=== PATIENT | male | born 1945 | race Asian ===

== ENCOUNTER 2017-01-26 09:10 | Emergency (ER) | payer MEDICAID ==
[~2017-01-26] VITALS: Ht 170.2 cm; Wt 77.3 kg
[~2017-01-26 09:10] MED LIST: ATOR40TA28 PO; CLOP75 PO; GABA-531 PO; INSLAN SQ; LISI-660 PO; METF850T2 PO; METO25 PO; PANT40TA25 PO
[2017-01-26 09:27] LABS: GLUCOSE,POINT OF CARE 138 MG/DL (70-110)
[2017-01-26 10:12] LABS: BASOPHILS % (AUTO) 0.4 % (0.0-2.0); EOSINOPHILS % (AUTO) 1.7 % (1.0-6.0); HEMATOCRIT 42.1 % (41-53); HEMOGLOBIN 13.8 g/dL (13.5-17.5); LYMPHOCYTES # (AUTO) 1.8 K/uL (1.0-4.8); MEAN CORPUSCULAR HEMOGLOBIN 30.6 pg (26.0-34.0); MEAN CORPUSCULAR HGB CONC 32.8 G/dL (31.0-37.0); MEAN CORPUSCULAR VOLUME 93 fL (80-100); MONOCYTES # (AUTO) 0.7 K/uL (0.1-1.0); MONOCYTES % (AUTO) 8.1 % (2.0-9.0); NEUTROPHILS # (AUTO) 5.6 K/uL (1.8-7.7); NEUTROPHILS % (AUTO) 67.8 % (40.0-70.0); PLATELET COUNT (AUTO) 315 K/uL (150-450); RED BLOOD CELL COUNT(AUTO) 4.52 MIL/uL (4.50-5.90); RED CELL DISTRIBUTION WIDTH 13.3 % (11.5-14.5); WHITE BLOOD COUNT (AUTO) 8.3 K/uL (4.5-11.0)
[2017-01-26 10:15] LABS: CALCIUM, TOTAL 9.7 mg/dL (8.8-10.5); CREATININE 1.29 mg/dL (0.60-1.30); POTASSIUM 4.2 mmol/L (3.5-5.1)
[2017-01-26 10:23] LABS: ALBUMIN 4.1 g/dL (3.4-5.0); BILIRUBIN,TOTAL 1.5 mg/dL (0.1-1.0); TOTAL PROTEIN, SERUM 8.4 g/dL (6.4-8.2)
[2017-01-26] MEDS: ONDANSETRON HCL 4 MG/2 ML VIAL IVP ONE (12:03)
[2017-01-26] MEDS: FAMOTIDINE 10 MG/ML 2 ML VIAL IVP ONE (12:03)
[2017-01-26] MEDS: SODIUM CHLORIDE 0.9% 1,000 ML IV ONE (12:03)
[2017-01-26] MEDS: HYDROmorphone 2 MG/ML SYRINGE IVP ONE ×2 (12:04→14:33)
[2017-01-26 15:05] VITALS: BP 143/87
== END 2017-01-26 15:33 | disposition home or self-care (01) ==
LOC: EMS 09:11
DX: K80.20 Calculus of gallbladder without cholecystitis without obstruction (principal); E11.9 Type 2 diabetes mellitus without complications; I25.10 Atherosclerotic heart disease of native coronary artery without angina pectoris; K21.9 Gastro-esophageal reflux disease without esophagitis; I10 Essential (primary) hypertension; Z88.6 Allergy status to analgesic agent; Z79.4 Long term (current) use of insulin
CPT/HCPCS: 76700; 80053; 82962; 83690; 85025; 96361; 96374; 96375; 96376; 99285; J1170; J2405; J3490; J7030

== ENCOUNTER 2017-03-17 04:57 | Emergency (ER) | payer MEDICAID ==
[~2017-03-17] VITALS: Ht 170.2 cm; Wt 77.0 kg
[2017-03-17 05:17] LABS: GLUCOSE COMMENT 1 Doctor Notified; GLUCOSE,POINT OF CARE 316 MG/DL (70-110)
[2017-03-17 05:35] LABS: BASOPHILS # (AUTO) 0.02 K/uL (0.00-0.20); BASOPHILS % (AUTO) 0.2 % (0.0-2.0); EOSINOPHILS # (AUTO) 0.08 K/uL (0.00-0.70); HEMATOCRIT 40.4 % (41-53); HEMOGLOBIN 13.8 g/dL (13.5-17.5); LYMPHOCYTES # (AUTO) 1.2 K/uL (1.0-4.8); LYMPHOCYTES % (AUTO) 12.1 % (22.0-44.0); MEAN CORPUSCULAR HEMOGLOBIN 31.2 pg (26.0-34.0); MEAN CORPUSCULAR HGB CONC 34.1 G/dL (31.0-37.0); MEAN CORPUSCULAR VOLUME 92 fL (80-100); MONOCYTES # (AUTO) 0.4 K/uL (0.1-1.0); MONOCYTES % (AUTO) 4.2 % (2.0-9.0); NEUTROPHILS # (AUTO) 8.5 K/uL (1.8-7.7); NEUTROPHILS % (AUTO) 82.7 % (40.0-70.0); PLATELET COUNT (AUTO) 203 K/uL (150-450); RED BLOOD CELL COUNT(AUTO) 4.41 MIL/uL (4.50-5.90); RED CELL DISTRIBUTION WIDTH 14.3 % (11.5-14.5); WHITE BLOOD COUNT (AUTO) 10.3 K/uL (4.5-11.0)
[2017-03-17 05:48] LABS: CALCIUM, TOTAL 9.1 mg/dL (8.8-10.5); CREATININE 1.27 mg/dL (0.60-1.30); POTASSIUM 4.4 mmol/L (3.5-5.1)
[2017-03-17 05:55] LABS: ALBUMIN 4.1 g/dL (3.4-5.0); BILIRUBIN,TOTAL 1.8 mg/dL (0.1-1.0); TOTAL PROTEIN, SERUM 7.8 g/dL (6.4-8.2)
[2017-03-17] MEDS ORDERED: ACETAMINOPHEN 1000 MG/ISO-OSM 100 ML IV ONE (06:15)
[2017-03-17 06:18] VITALS: BP 176/73
== END 2017-03-17 06:53 | disposition home or self-care (01) ==
LOC: EMS 04:59
DX: K80.20 Calculus of gallbladder without cholecystitis without obstruction (principal); E11.65 Type 2 diabetes mellitus with hyperglycemia; K21.9 Gastro-esophageal reflux disease without esophagitis; I25.10 Atherosclerotic heart disease of native coronary artery without angina pectoris; I10 Essential (primary) hypertension; Z79.4 Long term (current) use of insulin; Z88.6 Allergy status to analgesic agent
CPT/HCPCS: 36415; 80053; 82962; 83690; 84484; 85025; 93005; 96365; 99285; J0131

== ENCOUNTER 2017-06-08 20:18 | Emergency (ER) | payer MEDICAID ==
[~2017-06-08] VITALS: Ht 170.2 cm; Wt 81.0 kg
[2017-06-08 20:37] LABS: GLUCOSE,POINT OF CARE 283 MG/DL (70-110)
[2017-06-08 21:15] LABS: BASOPHILS % (AUTO) 0.1 % (0.0-2.0); EOSINOPHILS # (AUTO) 0.01 K/uL (0.00-0.70); EOSINOPHILS % (AUTO) 0.11 % (1.0-6.0); HEMATOCRIT 36.1 % (41-53); HEMOGLOBIN 12.3 g/dL (13.5-17.5); LYMPHOCYTES # (AUTO) 0.3 K/uL (1.0-4.8); LYMPHOCYTES % (AUTO) 6.4 % (22.0-44.0); MEAN CORPUSCULAR HEMOGLOBIN 31.6 pg (26.0-34.0); MEAN CORPUSCULAR HGB CONC 34.2 G/dL (31.0-37.0); MEAN CORPUSCULAR VOLUME 92 fL (80-100); MONOCYTES % (AUTO) 0.9 % (2.0-9.0); NEUTROPHILS # (AUTO) 4.2 K/uL (1.8-7.7); PLATELET COUNT (AUTO) 146 K/uL (150-450); RED BLOOD CELL COUNT(AUTO) 3.91 MIL/uL (4.50-5.90); WHITE BLOOD COUNT (AUTO) 4.5 K/uL (4.5-11.0)
[2017-06-08] MEDS ORDERED: SODIUM CHLORIDE 0.9% 1,000 ML IV ONE ×3 (21:15→23:15)
[2017-06-08] MEDS ORDERED: ACETAMINOPHEN 325 MG TABLET PO ONE (21:15)
[2017-06-08 21:18] LABS: NEUTROPHILS % (AUTO) 92.6 % (40.0-70.0)
[2017-06-08 21:22] LABS: ANION GAP 14 mmol/L (8-16); CALCIUM, TOTAL 8.3 mg/dL (8.8-10.5); CARBON DIOXIDE 20 mmol/L (22-29); CHLORIDE 99 mmol/L (98-107); CREATININE 1.57 mg/dL (0.60-1.30); GLOMERULAR FILTR. RATE CALC 44 mL/min (>60); POTASSIUM 3.2 mmol/L (3.5-5.1); SODIUM SERUM 133 mmol/L (136-145); UREA NITROGEN, BLOOD 19 mg/dL (7-18)
[2017-06-08 21:27] LABS: INR 1.3 (0.9-1.1); PROTHROMBIN TIME 13.9 SEC (9.4-11.6)
[2017-06-08 21:28] LABS: ALANINE AMINOTRANSFERASE 440 U/L (12-78); ALBUMIN 3.1 g/dL (3.4-5.0); ASPARTATE AMINOTRANSFERASE 245 U/L (15-37); BILIRUBIN,TOTAL 6.8 mg/dL (0.1-1.0); TOTAL PROTEIN, SERUM 6.3 g/dL (6.4-8.2)
[2017-06-08 21:29] LABS: TROPONIN I 0.08 ng/mL (0.00-0.05)
[2017-06-08 21:37] LABS: LACTIC ACID 5.2 mmol/L (0.4-2.0)
[2017-06-08] MEDS ORDERED: PIPERACILLIN SODIUM/TAZOBACTAM 4.5 GM in DEXTROSE 5%-WATER 100 ML IV ONE (21:45)
[2017-06-08 22:24] LABS: B-TYPE NATRIURETIC PEPTIDE 47 pg/mL (0-100)
[2017-06-08 23:04] LABS: REFLEX LACTIC ACID? YES YES
[2017-06-08 23:11] LABS: ADD UA MICROSCOPIC YES; APPEARANCE,URINE CLOUDY (CLEAR); GLUCOSE, URINE (UA) >=1000 mg/dL (NEGATIVE); KETONES,URINE NEGATIVE (NEGATIVE); LEUKOCYTE ESTERASE ,URINE NEGATIVE (NEGATIVE); OCCULT BLOOD,URINE SMALL (NEGATIVE); PH,URINE 5.5 (5.0-8.0); PROTEIN,URINE POS 1+ (NEGATIVE)
[2017-06-08 23:15] VITALS: BP 112/45
[2017-06-08 23:15] LABS: SQUAMOUS EPITHELIAL CELL,UR Few /LPF (None Seen); WBC,URINE 0-2 /HPF (0-5)
[2017-06-08] MEDS ORDERED: PIPERACILLIN/TAZO 3.375 GM/D5W 50 ML IV ONE (23:15)
== END 2017-06-09 00:35 | disposition short-term general hospital (02) ==
LOC: EMS 20:20
DX: K80.20 Calculus of gallbladder without cholecystitis without obstruction (principal); E11.9 Type 2 diabetes mellitus without complications; I25.10 Atherosclerotic heart disease of native coronary artery without angina pectoris; K21.9 Gastro-esophageal reflux disease without esophagitis; I10 Essential (primary) hypertension; Z79.4 Long term (current) use of insulin; Z88.6 Allergy status to analgesic agent
CPT/HCPCS: 36415; 71010; 76700; 80053; 81001; 82140; 82962; 83605; 83690; 83880; 84484; 85025; 85610; 85730; 87040; 87077; 87186; 93005; 96361; 96365; 96366; 99285; J2543; J7030; J7060

== ENCOUNTER 2017-08-12 12:00 | Day surgery (SDC) | payer MEDICAID ==
[~2017-08-12] VITALS: Ht 167.6 cm; Wt 74.5 kg
[~2017-08-12 12:00] MED LIST changes: +SODIUM CHLORIDE 0.9% 1,000 ML IV ONE
[2017-08-12] MEDS ORDERED: MIDAZOLAM HCL 2 MG/2 ML VIAL IVP ONE (12:01)
[2017-08-12] MEDS ORDERED: FentaNYL CITRATE-PF 100 MCG/2 ML VIAL IVP ONE (12:01)
[2017-08-12] MEDS ORDERED: LIDOCAINE HCL/PF 2% 5 ML VIAL IM ONE (12:01)
[2017-08-12] MEDS ORDERED: SUCCINYLCHOLINE CHLORIDE 20 MG/ML 10 ML VIAL IVP ONE (12:01)
[2017-08-12] MEDS ORDERED: PROPOFOL 1% 20 ML VIAL IVP ONE (12:01)
[2017-08-12] MEDS ORDERED: ONDANSETRON HCL 4 MG/2 ML VIAL IVP ONE (12:01)
[2017-08-12 12:45] LABS: BASOPHILS # (AUTO) 0.03 K/uL (0.00-0.20); BASOPHILS % (AUTO) 0.4 % (0.0-2.0); EOSINOPHILS # (AUTO) 0.21 K/uL (0.00-0.70); EOSINOPHILS % (AUTO) 2.96 % (1.0-6.0); HEMATOCRIT 40.9 % (41-53); HEMOGLOBIN 14.1 g/dL (13.5-17.5); LYMPHOCYTES % (AUTO) 27.6 % (22.0-44.0); MEAN CORPUSCULAR HEMOGLOBIN 31.5 pg (26.0-34.0); MEAN CORPUSCULAR HGB CONC 34.4 G/dL (31.0-37.0); MEAN CORPUSCULAR VOLUME 92 fL (80-100); MONOCYTES # (AUTO) 0.7 K/uL (0.1-1.0); MONOCYTES % (AUTO) 10.2 % (2.0-9.0); NEUTROPHILS # (AUTO) 4.2 K/uL (1.8-7.7); NEUTROPHILS % (AUTO) 58.8 % (40.0-70.0); PLATELET COUNT (AUTO) 199 K/uL (150-450); RED BLOOD CELL COUNT(AUTO) 4.46 MIL/uL (4.50-5.90); RED CELL DISTRIBUTION WIDTH 14.6 % (11.5-14.5); WHITE BLOOD COUNT (AUTO) 7.1 K/uL (4.5-11.0)
[2017-08-12 12:54] LABS: ANION GAP 8 mmol/L (8-16); CALCIUM, TOTAL 9.2 mg/dL (8.8-10.5); CARBON DIOXIDE 28 mmol/L (22-29); CHLORIDE 102 mmol/L (98-107); GLOMERULAR FILTR. RATE CALC > 60 mL/min (>60); POTASSIUM 4.3 mmol/L (3.5-5.1); SODIUM SERUM 138 mmol/L (136-145); UREA NITROGEN, BLOOD 13 mg/dL (7-18)
[2017-08-12 12:57] LABS: PROTHROMBIN TIME 10.2 SEC (9.4-11.6)
[2017-08-12] MEDS ORDERED: IOTHALAMATE MEGLUMINE 600 MG/ML 50 ML VIAL IVP ONE (14:16)
[2017-08-12] MEDS ORDERED: AMPICILLIN SODIUM/SULBACTAM NA 1.5 GM in SODIUM CHLORIDE 0.9% 50 ML IV STA (14:38)
[2017-08-12] MEDS ORDERED: HydrALAZINE HCL 20 MG/ML VIAL IVP ONE (15:15)
[2017-08-12] MEDS ORDERED: HydrALAZINE HCL 20 MG/ML VIAL IVP PRN (15:30)
== END 2017-08-12 16:45 | disposition home or self-care (01) ==
LOC: SURGERY 12:00
PROVIDERS: ATTEND Internal Medicine Gastroenterology
DX: K80.51 Calculus of bile duct without cholangitis or cholecystitis with obstruction (principal); K83.8 Other specified diseases of biliary tract; E11.42 Type 2 diabetes mellitus with diabetic polyneuropathy; I25.10 Atherosclerotic heart disease of native coronary artery without angina pectoris; G89.29 Other chronic pain; Z79.01 Long term (current) use of anticoagulants; Z86.79 Personal history of other diseases of the circulatory system; Z88.8 Allergy status to other drugs, medicaments and biological substances; Z95.5 Presence of coronary angioplasty implant and graft
CPT/HCPCS: 36415; 43264; 43275; 74328; 80048; 85025; 85610; 85730; 88300; 93005; C1769; J0295; J0330; J2250; J2405; J2704; J3010; J3490; J7030; J7050; Q9961

== ENCOUNTER 2017-08-25 02:40 | Inpatient (IN) | payer MEDICAID ==
[~2017-08-25] VITALS: Ht 170.2 cm; Wt 78.5 kg
[~2017-08-25 02:40] MED LIST changes: -SODIUM CHLORIDE 0.9% 1,000 ML IV ONE
[2017-08-25 03:13] LABS: BASOPHILS # (AUTO) 0.01 K/uL (0.00-0.20); BASOPHILS % (AUTO) 0.1 % (0.0-2.0); EOSINOPHILS # (AUTO) 0.08 K/uL (0.00-0.70); EOSINOPHILS % (AUTO) 1.53 % (1.0-6.0); HEMOGLOBIN 13.7 g/dL (13.5-17.5); LYMPHOCYTES % (AUTO) 18.9 % (22.0-44.0); MEAN CORPUSCULAR HEMOGLOBIN 31.4 pg (26.0-34.0); MEAN CORPUSCULAR VOLUME 90 fL (80-100); MONOCYTES % (AUTO) 0.6 % (2.0-9.0); NEUTROPHILS # (AUTO) 4.1 K/uL (1.8-7.7); NEUTROPHILS % (AUTO) 78.9 % (40.0-70.0); PLATELET COUNT (AUTO) 360 K/uL (150-450); RED BLOOD CELL COUNT(AUTO) 4.35 MIL/uL (4.50-5.90); RED CELL DISTRIBUTION WIDTH 14.1 % (11.5-14.5); WHITE BLOOD COUNT (AUTO) 5.3 K/uL (4.5-11.0)
[2017-08-25 03:24] LABS: ANION GAP 12 mmol/L (8-16); CALCIUM, TOTAL 9.1 mg/dL (8.8-10.5); CARBON DIOXIDE 24 mmol/L (22-29); CHLORIDE 99 mmol/L (98-107); CREATININE 1.28 mg/dL (0.60-1.30); GLOMERULAR FILTR. RATE CALC 56 mL/min (>60); POTASSIUM 3.9 mmol/L (3.5-5.1); SODIUM SERUM 135 mmol/L (136-145); UREA NITROGEN, BLOOD 8 mg/dL (7-18)
[2017-08-25] MEDS ORDERED: ONDANSETRON HCL 4 MG/2 ML VIAL IVP ONE (03:30)
[2017-08-25] MEDS ORDERED: SODIUM CHLORIDE 0.9% 1,000 ML IV ONE ×2 (03:30→03:45)
[2017-08-25] MEDS ORDERED: MECLIZINE HCL 25 MG TABLET PO ONE (03:30)
[2017-08-25] MEDS ORDERED: IBUPROFEN 600 MG TABLET PO ONE (03:30)
[2017-08-25 03:32] LABS: GLUCOSE,POINT OF CARE 117 MG/DL (70-110)
[2017-08-25 03:38] LABS: ALANINE AMINOTRANSFERASE 37 U/L (12-78); ALBUMIN 3.6 g/dL (3.4-5.0); ASPARTATE AMINOTRANSFERASE 20 U/L (15-37); BILIRUBIN,TOTAL 1.2 mg/dL (0.1-1.0); TOTAL PROTEIN, SERUM 8.7 g/dL (6.4-8.2)
[2017-08-25 04:27] LABS: APPEARANCE,URINE CLEAR (CLEAR); GLUCOSE, URINE (UA) NEGATIVE (NEGATIVE); KETONES,URINE NEGATIVE (NEGATIVE); LEUKOCYTE ESTERASE ,URINE NEGATIVE (NEGATIVE); OCCULT BLOOD,URINE NEGATIVE (NEGATIVE); PROTEIN,URINE POS 1+ (NEGATIVE)
[2017-08-25 04:30] LABS: ADD UA MICROSCOPIC YES
[2017-08-25 04:39] LABS: RBC,URINE 0-2 /HPF (0-2); SQUAMOUS EPITHELIAL CELL,UR Few /LPF (None Seen); WBC,URINE 0-2 /HPF (0-5)
[2017-08-25] MEDS ORDERED: IOVERSOL 320 MG/ML 100 ML VIAL ONE (04:39)
[2017-08-25] MEDS ORDERED: SODIUM CHLORIDE 0.9% 100 ML ONE (04:39)
[2017-08-25] MEDS ORDERED: ACETAMINOPHEN 325 MG TABLET PO PRN (04:45)
[2017-08-25] MEDS ORDERED: ONDANSETRON HCL 4 MG/2 ML VIAL IVP PRN ×2 (04:45→06:30)
[2017-08-25] MEDS ORDERED: *CLINICAL-CEFEPIME DOSING CLINICAL ONE ×2 (04:45)
[2017-08-25] MEDS ORDERED: 0.9% SODIUM CHLORIDE 10 ML SYRINGE IVP PRN (04:45)
[2017-08-25 05:08] LABS: REFLEX LACTIC ACID? YES YES
[2017-08-25] MEDS ORDERED: VANCOMYCIN HCL 1.25 GM in DEXTROSE 5%-WATER 250 ML IV ONE (05:30)
[2017-08-25] MEDS ORDERED: CEFEPIME HCL 1 GM in DEXTROSE 5%-WATER 50 ML IV ONE (05:30)
[2017-08-25] MEDS ORDERED: MetroNIDAZOLE 500 MG/NACL 100 ML IV ONE (05:45)
[2017-08-25 05:52] VITALS: BP 148/67
[2017-08-25] MEDS ORDERED: ALBUTEROL SULFATE 2.5 MG/0.5 ML NEB SOLUTION NEB PRN (06:30)
[2017-08-25] MEDS ORDERED: ZOLPIDEM TARTRATE 5 MG TABLET PO PRN (06:30)
[2017-08-25] MEDS ORDERED: BISACODYL 10 MG RECTAL RECTAL SUPPOSITORY PR PRN (06:30)
[2017-08-25] MEDS ORDERED: DEXTROSE 50%-WATER 25 GM/50 ML SYRINGE IVP PRN (06:30)
[2017-08-25] MEDS ORDERED: IPRATROPIUM BROMIDE 0.5 MG/2.5 ML NEB SOLUTION NEB PRN (06:30)
[2017-08-25] MEDS ORDERED: MORPHINE SULFATE 2 MG/ML SYRINGE IVP PRN (06:30)
[2017-08-25] MEDS ORDERED: OxyCODONE HCL/ACETAMINOPHEN 5-325 MG TABLET PO PRN (06:30)
[2017-08-25] MEDS ORDERED: MAGNESIUM HYDROXIDE SUSPENSION 30 ML UDCUP PO PRN (06:30)
[2017-08-25 06:43] LABS: GLUCOSE,POINT OF CARE 72 MG/DL (70-110)
[2017-08-25] MEDS ORDERED: CloNIDine HCL 0.1 MG TABLET PO PRN (06:45)
[2017-08-25 07:44] VITALS: BP 142/66
[2017-08-25] MEDS: MetFORMIN HCL 850 MG TABLET PO SCH ×3 (08:32→18:15)
[2017-08-25] MEDS: METOPROLOL TARTRATE 25 MG TABLET PO SCH (08:32)
[2017-08-25] MEDS: HEPARIN SODIUM,PORCINE 5,000 UNITS/ML VIAL SQ SCH ×2 (08:32→20:15)
[2017-08-25] MEDS: LISINOPRIL 5 MG TABLET PO SCH (08:32)
[2017-08-25] MEDS: ATORVASTATIN CALCIUM 40 MG TABLET PO SCH (08:32)
[2017-08-25] MEDS: GABAPENTIN 300 MG CAPSULE PO SCH (08:32)
[2017-08-25] MEDS: PANTOPRAZOLE SODIUM 40 MG DR TABLET PO SCH (08:32)
[2017-08-25] MEDS: CLOPIDOGREL BISULFATE 75 MG TABLET PO SCH (08:32)
[2017-08-25] MEDS: SODIUM CHLORIDE 0.9% 1,000 ML IV SCH (09:34)
[2017-08-25 11:44] VITALS: BP 122/61
[2017-08-25] MEDS: MetroNIDAZOLE 500 MG/NACL 100 ML IV SCH ×2 (12:55→18:15)
[2017-08-25 15:16] VITALS: BP 130/66
[2017-08-25 17:58] LABS: GLUCOSE,POINT OF CARE 133 MG/DL (70-110)
[2017-08-25] MEDS: ACETAMINOPHEN 325 MG TABLET PO PRN (18:47)
[2017-08-25] MEDS ORDERED: VANCOMYCIN HCL 1 GM/D5% WATER 200 ML IV SCH (19:00)
[2017-08-25] MEDS ORDERED: PNEUMOCOCCAL VACCINE POLYVALENT 0.5 ML VIAL [PPSV23] IM ONE (19:15)
[2017-08-25] MEDS ORDERED: INFLUENZA VIRUS VACCINE QVS 2017-18 (3YR+)/PF 60 MCG/0.5 ML SYRINGE IM ONE (19:15)
[2017-08-25 19:38] VITALS: BP 126/56
[2017-08-25] MEDS: VANCOMYCIN HCL 750 MG in DEXTROSE 5%-WATER 150 ML IV SCH (20:15)
[2017-08-25] MEDS: INSULIN ASPART 100 UNITS/ML SQ PRN (20:19)
[2017-08-25] MEDS: INSULIN DETEMIR 100 UNITS/ML SQ SCH (20:19)
[2017-08-25 20:33] LABS: GLUCOSE,POINT OF CARE 143 MG/DL (70-110)
[2017-08-25] MEDS: CefTRIAXone 1 GM/DEXTROSE 50 ML IV SCH (22:24)
[2017-08-25 23:25] VITALS: BP 119/53
[2017-08-26] MEDS: SODIUM CHLORIDE 0.9% 1,000 ML IV SCH ×3 (00:32→20:40)
[2017-08-26] MEDS: MetroNIDAZOLE 500 MG/NACL 100 ML IV SCH ×3 (02:34→18:31)
[2017-08-26 04:29] VITALS: BP 131/55
[2017-08-26 05:32] LABS: GLUCOSE COMMENT 1 Juice/Food/D50 Given; GLUCOSE,POINT OF CARE 61 MG/DL (70-110)
[2017-08-26 05:58] LABS: GLUCOSE,POINT OF CARE 79 MG/DL (70-110)
[2017-08-26 06:26] LABS: HEMATOCRIT 32.5 % (41-53); HEMOGLOBIN 11.2 g/dL (13.5-17.5); MEAN CORPUSCULAR HEMOGLOBIN 31.3 pg (26.0-34.0); MEAN CORPUSCULAR HGB CONC 34.5 G/dL (31.0-37.0); MEAN CORPUSCULAR VOLUME 91 fL (80-100); PLATELET COUNT (AUTO) 255 K/uL (150-450); RED BLOOD CELL COUNT(AUTO) 3.58 MIL/uL (4.50-5.90)
[2017-08-26 06:28] LABS: GLUCOSE,POINT OF CARE 158 MG/DL (70-110)
[2017-08-26 06:31] LABS: INR 1.1 (0.9-1.1); PROTHROMBIN TIME 11.6 SEC (9.4-11.6)
[2017-08-26 06:38] LABS: LACTIC ACID 1.9 mmol/L (0.4-2.0)
[2017-08-26 06:43] LABS: ALBUMIN 2.5 g/dL (3.4-5.0); CALCIUM, TOTAL 8.2 mg/dL (8.8-10.5); CHOL/HDL RATIO 2.5 (4.2-7.3); CREATININE 1.23 mg/dL (0.60-1.30); MAGNESIUM 1.1 mg/dL (1.80-2.40); PHOSPHORUS 1.8 mg/dL (2.5-4.9); POTASSIUM 3.4 mmol/L (3.5-5.1); TOTAL PROTEIN, SERUM 6.5 g/dL (6.4-8.2)
[2017-08-26 07:05] LABS: THYROID STIMULATING HORMONE 2.03 uIU/mL (0.36-3.74)
[2017-08-26 07:17] VITALS: BP 132/50
[2017-08-26] MEDS: CLOPIDOGREL BISULFATE 75 MG TABLET PO SCH (08:09)
[2017-08-26] MEDS: ATORVASTATIN CALCIUM 40 MG TABLET PO SCH (08:09)
[2017-08-26] MEDS: VANCOMYCIN HCL 750 MG in DEXTROSE 5%-WATER 150 ML IV SCH ×2 (08:09→20:30)
[2017-08-26] MEDS: LISINOPRIL 5 MG TABLET PO SCH (08:09)
[2017-08-26] MEDS: METOPROLOL TARTRATE 25 MG TABLET PO SCH (08:09)
[2017-08-26] MEDS: GABAPENTIN 300 MG CAPSULE PO SCH (08:09)
[2017-08-26] MEDS: MetFORMIN HCL 850 MG TABLET PO SCH ×3 (08:09→17:42)
[2017-08-26] MEDS: PANTOPRAZOLE SODIUM 40 MG DR TABLET PO SCH (08:09)
[2017-08-26] MEDS: HEPARIN SODIUM,PORCINE 5,000 UNITS/ML VIAL SQ SCH ×2 (08:09→20:52)
[2017-08-26] MEDS ORDERED: MAGNESIUM SULFATE 2 GM in DEXTROSE 5%-WATER 50 ML IV PRN (08:15)
[2017-08-26] MEDS ORDERED: POTASSIUM CHLORIDE 20 MEQ ER TABLET PO PRN (08:15)
[2017-08-26] MEDS ORDERED: POTASSIUM CHL 10 MEQ/WATER 50 ML IV PRN (08:15)
[2017-08-26] MEDS ORDERED: MAGNESIUM SULFATE 4 GM/WATER 100 ML IV PRN (08:15)
[2017-08-26 09:13] LABS: BAND NEUTROPHILS % (MANUAL) 10 % (1-5); BASOPHILS % (MANUAL) 1 % (0-2); LYMPHOCYTES % (MANUAL) 4 % (22-44); TOTAL CELLS COUNTED 100
[2017-08-26] MEDS: CHOLECALCIFEROL (VIT D3) 1,000 UNITS TABLET PO SCH (10:29)
[2017-08-26] MEDS ORDERED: FentaNYL CITRATE-PF 100 MCG/2 ML VIAL ONE (10:52)
[2017-08-26] MEDS ORDERED: MIDAZOLAM HCL 2 MG/2 ML VIAL ONE (10:53)
[2017-08-26] MEDS ORDERED: LIDOCAINE HCL/PF 1% 30 ML VIAL ONE (10:53)
[2017-08-26] MEDS ORDERED: FentaNYL CITRATE-PF 100 MCG/2 ML VIAL IVP ONE (11:25)
[2017-08-26] MEDS ORDERED: MIDAZOLAM HCL 2 MG/2 ML VIAL IVP ONE (11:25)
[2017-08-26 12:41] VITALS: BP 131/69
[2017-08-26 12:53] LABS: GLUCOSE,POINT OF CARE 91 MG/DL (70-110)
[2017-08-26 15:49] VITALS: BP 139/74
[2017-08-26] MEDS: ACETAMINOPHEN 325 MG TABLET PO PRN (16:11)
[2017-08-26] MEDS: INSULIN ASPART 100 UNITS/ML SQ PRN (17:53)
[2017-08-26 18:03] LABS: GLUCOSE COMMENT 1 Received Meds; GLUCOSE,POINT OF CARE 152 MG/DL (70-110)
[2017-08-26 20:39] VITALS: BP 129/85
[2017-08-26] MEDS: CefTRIAXone 1 GM/DEXTROSE 50 ML IV SCH (20:51)
[2017-08-26] MEDS: INSULIN DETEMIR 100 UNITS/ML SQ SCH (20:56)
[2017-08-26] MEDS: 0.9% SODIUM CHLORIDE 10 ML VIAL IRRIG SCH (20:57)
[2017-08-26 21:27] LABS: APPEARANCE,URINE CLEAR (CLEAR); GLUCOSE, URINE (UA) NEGATIVE (NEGATIVE); KETONES,URINE NEGATIVE (NEGATIVE); LEUKOCYTE ESTERASE ,URINE NEGATIVE (NEGATIVE); OCCULT BLOOD,URINE NEGATIVE (NEGATIVE); PH,URINE 5.5 (5.0-8.0); PROTEIN,URINE NEGATIVE (NEGATIVE)
[2017-08-26 21:29] LABS: ADD UA MICROSCOPIC NO
[2017-08-26] MEDS: LEVOFLOXACIN 750 MG/D5% WATER 150 ML IV SCH (22:32)
[2017-08-26 22:43] LABS: GLUCOSE,POINT OF CARE 128 MG/DL (70-110)
[2017-08-27] VITALS (7 sets, daily range): BP systolic 139–162; BP diastolic 74–81
[2017-08-27] MEDS: ACETAMINOPHEN 325 MG TABLET PO PRN (00:04)
[2017-08-27] MEDS: MetroNIDAZOLE 500 MG/NACL 100 ML IV SCH ×2 (03:10→11:47)
[2017-08-27 05:23] LABS: GLUCOSE,POINT OF CARE 120 MG/DL (70-110)
[2017-08-27 07:26] LABS: BASOPHILS % (AUTO) 0.2 % (0.0-2.0); HEMATOCRIT 33.5 % (41-53); HEMOGLOBIN 11.5 g/dL (13.5-17.5); LYMPHOCYTES # (AUTO) 1.3 K/uL (1.0-4.8); LYMPHOCYTES % (AUTO) 8.7 % (22.0-44.0); MEAN CORPUSCULAR HEMOGLOBIN 31.1 pg (26.0-34.0); MEAN CORPUSCULAR HGB CONC 34.2 G/dL (31.0-37.0); MEAN CORPUSCULAR VOLUME 91 fL (80-100); MONOCYTES # (AUTO) 0.9 K/uL (0.1-1.0); NEUTROPHILS # (AUTO) 12.4 K/uL (1.8-7.7); NEUTROPHILS % (AUTO) 84.1 % (40.0-70.0); PLATELET COUNT (AUTO) 274 K/uL (150-450); RED BLOOD CELL COUNT(AUTO) 3.68 MIL/uL (4.50-5.90); RED CELL DISTRIBUTION WIDTH 14.3 % (11.5-14.5); WHITE BLOOD COUNT (AUTO) 14.7 K/uL (4.5-11.0)
[2017-08-27 07:45] LABS: CALCIUM, TOTAL 8.6 mg/dL (8.8-10.5); CREATININE 1.22 mg/dL (0.60-1.30); MAGNESIUM 1.7 mg/dL (1.80-2.40); POTASSIUM 4.1 mmol/L (3.5-5.1)
[2017-08-27] MEDS: VANCOMYCIN HCL 750 MG in DEXTROSE 5%-WATER 150 ML IV SCH (08:02)
[2017-08-27] MEDS: CLOPIDOGREL BISULFATE 75 MG TABLET PO SCH (08:02)
[2017-08-27] MEDS: PANTOPRAZOLE SODIUM 40 MG DR TABLET PO SCH (08:03)
[2017-08-27] MEDS: METOPROLOL TARTRATE 25 MG TABLET PO SCH (08:03)
[2017-08-27] MEDS: LISINOPRIL 5 MG TABLET PO SCH (08:03)
[2017-08-27] MEDS: HEPARIN SODIUM,PORCINE 5,000 UNITS/ML VIAL SQ SCH ×2 (08:03→20:27)
[2017-08-27] MEDS: CHOLECALCIFEROL (VIT D3) 1,000 UNITS TABLET PO SCH (08:03)
[2017-08-27] MEDS: MetFORMIN HCL 850 MG TABLET PO SCH ×3 (08:03→18:13)
[2017-08-27] MEDS: GABAPENTIN 300 MG CAPSULE PO SCH (08:03)
[2017-08-27] MEDS: ATORVASTATIN CALCIUM 40 MG TABLET PO SCH (08:03)
[2017-08-27] MEDS: 0.9% SODIUM CHLORIDE 10 ML VIAL IRRIG SCH ×2 (08:16→20:28)
[2017-08-27] MEDS: SODIUM CHLORIDE 0.9% 1,000 ML IV SCH (11:46)
[2017-08-27 12:53] LABS: GLUCOSE,POINT OF CARE 138 MG/DL (70-110)
[2017-08-27] MEDS: MAGNESIUM OXIDE 400 MG TABLET PO PRN (12:56)
[2017-08-27] MEDS: LACTOBACILLUS ACIDOPHILUS/BULGARICUS TABLET PO SCH ×2 (14:19→20:28)
[2017-08-27 17:52] LABS: GLUCOSE,POINT OF CARE 133 MG/DL (70-110)
[2017-08-27] MEDS: INSULIN ASPART 100 UNITS/ML SQ PRN (20:45)
[2017-08-27] MEDS: INSULIN DETEMIR 100 UNITS/ML SQ SCH (20:47)
[2017-08-27] MEDS: LEVOFLOXACIN 750 MG/D5% WATER 150 ML IV SCH (21:55)
[2017-08-28] MEDS: MAGNESIUM OXIDE 400 MG TABLET PO PRN ×2 (00:08→06:04)
[2017-08-28] MEDS: SODIUM CHLORIDE 0.9% 1,000 ML IV SCH (00:37)
[2017-08-28] MEDS: ACETAMINOPHEN 325 MG TABLET PO PRN (00:41)
[2017-08-28 05:10] VITALS: BP 152/68
[2017-08-28 06:48] LABS: BASOPHILS % (AUTO) 0.1 % (0.0-2.0); EOSINOPHILS % (AUTO) 1.9 % (1.0-6.0); HEMATOCRIT 32.5 % (41-53); HEMOGLOBIN 11.1 g/dL (13.5-17.5); LYMPHOCYTES # (AUTO) 1.3 K/uL (1.0-4.8); LYMPHOCYTES % (AUTO) 11.9 % (22.0-44.0); MEAN CORPUSCULAR HGB CONC 34.3 G/dL (31.0-37.0); MEAN CORPUSCULAR VOLUME 90 fL (80-100); MONOCYTES # (AUTO) 0.9 K/uL (0.1-1.0); MONOCYTES % (AUTO) 8.6 % (2.0-9.0); NEUTROPHILS # (AUTO) 8.3 K/uL (1.8-7.7); NEUTROPHILS % (AUTO) 77.5 % (40.0-70.0); PLATELET COUNT (AUTO) 286 K/uL (150-450); RED CELL DISTRIBUTION WIDTH 14.1 % (11.5-14.5); WHITE BLOOD COUNT (AUTO) 10.7 K/uL (4.5-11.0)
[2017-08-28 07:13] LABS: ANION GAP 10 mmol/L (8-16); CALCIUM, TOTAL 8.8 mg/dL (8.8-10.5); CARBON DIOXIDE 22 mmol/L (22-29); CHLORIDE 105 mmol/L (98-107); CREATININE 1.16 mg/dL (0.60-1.30); GLOMERULAR FILTR. RATE CALC > 60 mL/min (>60); POTASSIUM 4.2 mmol/L (3.5-5.1); SODIUM SERUM 137 mmol/L (136-145); UREA NITROGEN, BLOOD 9 mg/dL (7-18)
[2017-08-28 08:05] VITALS: BP 156/73
[2017-08-28] MEDS: PANTOPRAZOLE SODIUM 40 MG DR TABLET PO SCH (08:18)
[2017-08-28] MEDS: ATORVASTATIN CALCIUM 40 MG TABLET PO SCH (08:18)
[2017-08-28] MEDS: GABAPENTIN 300 MG CAPSULE PO SCH (08:18)
[2017-08-28] MEDS: MetFORMIN HCL 850 MG TABLET PO SCH ×2 (08:18→11:57)
[2017-08-28] MEDS: LISINOPRIL 5 MG TABLET PO SCH (08:18)
[2017-08-28] MEDS: METOPROLOL TARTRATE 25 MG TABLET PO SCH (08:18)
[2017-08-28] MEDS: CHOLECALCIFEROL (VIT D3) 1,000 UNITS TABLET PO SCH (08:18)
[2017-08-28] MEDS: LACTOBACILLUS ACIDOPHILUS/BULGARICUS TABLET PO SCH (08:18)
[2017-08-28] MEDS: HEPARIN SODIUM,PORCINE 5,000 UNITS/ML VIAL SQ SCH (08:19)
[2017-08-28] MEDS: CLOPIDOGREL BISULFATE 75 MG TABLET PO SCH (08:21)
[2017-08-28] MEDS: 0.9% SODIUM CHLORIDE 10 ML VIAL IRRIG SCH (09:00)
[2017-08-28] MEDS ORDERED: LEVO500T89 PO (09:34)
[2017-08-28] MEDS: INSULIN ASPART 100 UNITS/ML SQ PRN (11:41)
[2017-08-28 12:08] LABS: GLUCOSE COMMENT 1 Received Meds; GLUCOSE,POINT OF CARE 145 MG/DL (70-110)
[2017-08-28 12:24] VITALS: BP 160/76
[2017-08-31 11:28] LABS: GLUCOSE,POINT OF CARE 144 MG/DL (70-110)
[2017-08-31 11:28] LABS: GLUCOSE COMMENT 1 Repeated; GLUCOSE COMMENT 2 Juice/Food/D50 Given; GLUCOSE,POINT OF CARE 74 MG/DL (70-110)
== END 2017-08-28 17:00 | disposition home or self-care (01) | DRG 871 ==
LOC: EMS 02:41 → 6N 05:18
PROVIDERS: ADMIT Internal Medicine; ATTEND Internal Medicine
PROC: 0F9230Z Drainage of Left Lobe Liver with Drainage Device, Percutaneous Approach (ICD-10-PCS; principal; 2017-08-26)
DX: A41.9 Sepsis, unspecified organism (principal); K75.0 Abscess of liver; E44.0 Moderate protein-calorie malnutrition; E11.65 Type 2 diabetes mellitus with hyperglycemia; E55.9 Vitamin D deficiency, unspecified; I10 Essential (primary) hypertension; I25.10 Atherosclerotic heart disease of native coronary artery without angina pectoris; K21.9 Gastro-esophageal reflux disease without esophagitis; Z68.27 Body mass index [BMI] 27.0-27.9, adult; B96.1 Klebsiella pneumoniae [K. pneumoniae] as the cause of diseases classified elsewhere; Z79.4 Long term (current) use of insulin; Z95.5 Presence of coronary angioplasty implant and graft
CPT/HCPCS: 36245; 47011; 74177; 76700; 82105; 82306; 82962; 83605; 83735; 84100; 84443; 87040; 87070; 87205; 96361; 96374; 99285; J0692; J0696; J1644; J1956; J2250; J2405; J3010; J3370; J3475; J3490; J7030; J7050; J7060

== ENCOUNTER 2018-02-26 10:33 | Emergency (ER) | payer MEDICAID, OTHER ==
[~2018-02-26] VITALS: Ht 170.2 cm; Wt 77.3 kg
[~2018-02-26 10:33] MED LIST changes: +LEVO500T89 PO
[2018-02-26 10:48] LABS: GLUCOSE,POINT OF CARE 357 MG/DL (70-110)
[2018-02-26] MEDS ORDERED: PB/HYOSCY/ATR/SCOP/LIDO/MAALOX 55 ML BOTTLE PO ONE (11:15)
[2018-02-26 11:52] LABS: APPEARANCE,URINE CLEAR (CLEAR); BILIRUBIN,URINE NEGATIVE (NEGATIVE); GLUCOSE, URINE (UA) >=1000 mg/dL (NEGATIVE); KETONES,URINE NEGATIVE (NEGATIVE); LEUKOCYTE ESTERASE ,URINE NEGATIVE (NEGATIVE); NITRATE,URINE NEGATIVE (NEGATIVE); OCCULT BLOOD,URINE NEGATIVE (NEGATIVE); PROTEIN,URINE NEGATIVE (NEGATIVE); UROBILINOGEN,URINE 0.2 mg/dL (<=1.0)
[2018-02-26 12:02] LABS: BACTERIA,URINE None Seen /HPF (None Seen); RBC,URINE None Seen /HPF (0-2); SQUAMOUS EPITHELIAL CELL,UR Rare /LPF (None Seen); WBC,URINE None Seen /HPF (0-5)
[2018-02-26 12:23] LABS: BASOPHILS % (AUTO) 0.9 % (0.0-2.0); EOSINOPHILS % (AUTO) 0.6 % (1.0-6.0); HEMATOCRIT 39.1 % (41-53); HEMOGLOBIN 13.6 g/dL (13.5-17.5); LYMPHOCYTES # (AUTO) 1.4 K/uL (1.0-4.8); LYMPHOCYTES % (AUTO) 11.8 % (22.0-44.0); MEAN CORPUSCULAR HEMOGLOBIN 30.1 pg (26.0-34.0); MEAN CORPUSCULAR HGB CONC 34.7 G/dL (31.0-37.0); MEAN CORPUSCULAR VOLUME 87 fL (80-100); MONOCYTES % (AUTO) 8.7 % (2.0-9.0); PLATELET COUNT (AUTO) 213 K/uL (150-450); RED BLOOD CELL COUNT(AUTO) 4.52 MIL/uL (4.50-5.90); RED CELL DISTRIBUTION WIDTH 13.8 % (11.5-14.5)
[2018-02-26 12:35] LABS: CALCIUM, TOTAL 9.4 mg/dL (8.8-10.5); CREATININE 1.28 mg/dL (0.60-1.30); POTASSIUM 4.2 mmol/L (3.5-5.1)
[2018-02-26 12:41] LABS: ALBUMIN 3.9 g/dL (3.4-5.0); BILIRUBIN,TOTAL 2.6 mg/dL (0.1-1.0); TOTAL PROTEIN, SERUM 7.6 g/dL (6.4-8.2)
[2018-02-26] MEDS ORDERED: ACETAMINOPHEN 1000 MG/ISO-OSM 100 ML IV ONE (13:15)
[2018-02-26 15:32] VITALS: BP 157/81
== END 2018-02-26 16:21 | disposition home or self-care (01) ==
LOC: EMS 10:33
DX: R10.13 Epigastric pain (principal); D72.829 Elevated white blood cell count, unspecified; E80.7 Disorder of bilirubin metabolism, unspecified; I25.10 Atherosclerotic heart disease of native coronary artery without angina pectoris; E11.9 Type 2 diabetes mellitus without complications; K21.9 Gastro-esophageal reflux disease without esophagitis; I10 Essential (primary) hypertension; Z79.4 Long term (current) use of insulin; Z88.6 Allergy status to analgesic agent
CPT/HCPCS: 36415; 71045; 76705; 80053; 81001; 82962; 83690; 84484; 85025; 93005; 96374; 99285; J0131

== ENCOUNTER 2018-02-26 19:45 | Emergency (ER) | payer OTHER ==
[~2018-02-26] VITALS: Ht 170.2 cm; Wt 61.4 kg
[2018-02-26 19:57] LABS: GLUCOSE,POINT OF CARE 278 MG/DL (70-110)
[2018-02-26] MEDS ORDERED: SODIUM CHLORIDE 0.9% 1,000 ML IV ONE ×2 (20:00→23:00)
[2018-02-26] MEDS ORDERED: ONDANSETRON HCL 4 MG/2 ML VIAL IVP ONE (20:00)
[2018-02-26] MEDS ORDERED: ACETAMINOPHEN 1000 MG/ISO-OSM 100 ML IV ONE (20:00)
[2018-02-26] MEDS ORDERED: BARIUM SULFATE 0.1% SUSPENSION 450 ML BOTTLE PO ONE (21:30)
[2018-02-26 22:04] LABS: BASOPHILS % (AUTO) 0.3 % (0.0-2.0); EOSINOPHILS % (AUTO) 0 % (1.0-6.0); HEMOGLOBIN 13.8 g/dL (13.5-17.5); LYMPHOCYTES # (AUTO) 0.4 K/uL (1.0-4.8); LYMPHOCYTES % (AUTO) 6.8 % (22.0-44.0); MEAN CORPUSCULAR HEMOGLOBIN 29.9 pg (26.0-34.0); MEAN CORPUSCULAR HGB CONC 34.4 G/dL (31.0-37.0); MEAN CORPUSCULAR VOLUME 87 fL (80-100); MONOCYTES # (AUTO) 0.1 K/uL (0.1-1.0); MONOCYTES % (AUTO) 1.5 % (2.0-9.0); NEUTROPHILS # (AUTO) 5.3 K/uL (1.8-7.7); PLATELET COUNT (AUTO) 184 K/uL (150-450); RED CELL DISTRIBUTION WIDTH 13.8 % (11.5-14.5)
[2018-02-26 22:07] LABS: NEUTROPHILS % (AUTO) 91.4 % (40.0-70.0)
[2018-02-26 22:13] LABS: ANION GAP 12 mmol/L (8-16); CALCIUM, TOTAL 9.1 mg/dL (8.8-10.5); CARBON DIOXIDE 24 mmol/L (22-29); CHLORIDE 96 mmol/L (98-107); CREATININE 1.34 mg/dL (0.60-1.30); GLOMERULAR FILTR. RATE CALC 53 mL/min (>60); GLUCOSE,RANDOM 270 mg/dL (70-110); POTASSIUM 4.1 mmol/L (3.5-5.1); SODIUM SERUM 132 mmol/L (136-145); UREA NITROGEN, BLOOD 16 mg/dL (7-18)
[2018-02-26 22:13] LABS: APPEARANCE,URINE CLEAR (CLEAR); BILIRUBIN,URINE NEGATIVE (NEGATIVE); GLUCOSE, URINE (UA) >=1000 mg/dL (NEGATIVE); KETONES,URINE TRACE mg/dL (NEGATIVE); LEUKOCYTE ESTERASE ,URINE NEGATIVE (NEGATIVE); NITRATE,URINE NEGATIVE (NEGATIVE); OCCULT BLOOD,URINE NEGATIVE (NEGATIVE); PH,URINE 5.5 (5.0-8.0); PROTEIN,URINE POS 1+ (NEGATIVE); UROBILINOGEN,URINE 0.2 mg/dL (<=1.0)
[2018-02-26 22:19] LABS: ALANINE AMINOTRANSFERASE 43 U/L (12-78); ALBUMIN 3.7 g/dL (3.4-5.0); ALKALINE PHOSPHATASE 92 U/L (46-116); ASPARTATE AMINOTRANSFERASE 20 U/L (15-37); BILIRUBIN,TOTAL 3.2 mg/dL (0.1-1.0); LIPASE 131 U/L (73-393); TOTAL PROTEIN, SERUM 7.4 g/dL (6.4-8.2)
[2018-02-26 22:25] LABS: BACTERIA,URINE None Seen /HPF (None Seen); RBC,URINE None Seen /HPF (0-2); SQUAMOUS EPITHELIAL CELL,UR Rare /LPF (None Seen); WBC,URINE 0-2 /HPF (0-5)
[2018-02-26 22:27] LABS: LACTIC ACID 3.3 mmol/L (0.4-2.0)
[2018-02-26] MEDS ORDERED: IOVERSOL 350 MG/ML 100 ML VIAL ONE (22:41)
[2018-02-26] MEDS ORDERED: SODIUM CHLORIDE 0.9% 100 ML ONE (22:41)
[2018-02-27] MEDS ORDERED: CeFAZolin 1 GM/DEXTROSE 50 ML IV ONE (00:45)
[2018-02-27] MEDS ORDERED: MetroNIDAZOLE 500 MG/NACL 100 ML IV ONE (00:45)
[2018-02-27 01:07] LABS: LACTIC ACID 3.1 mmol/L (0.4-2.0)
[2018-02-27] MEDS ORDERED: CeFAZolin SODIUM 1 GM in DEXTROSE 5%-WATER 10 ML IV SCH (01:30)
[2018-02-27 04:05] VITALS: BP 131/63
== END 2018-02-27 05:02 | disposition short-term general hospital (02) ==
LOC: EMS 19:46
DX: K80.20 Calculus of gallbladder without cholecystitis without obstruction (principal); K83.8 Other specified diseases of biliary tract; R74.0 Nonspecific elevation of levels of transaminase and lactic acid dehydrogenase [LDH]; E80.7 Disorder of bilirubin metabolism, unspecified; R50.9 Fever, unspecified; E11.9 Type 2 diabetes mellitus without complications; I10 Essential (primary) hypertension; K21.9 Gastro-esophageal reflux disease without esophagitis; I25.10 Atherosclerotic heart disease of native coronary artery without angina pectoris; Z79.4 Long term (current) use of insulin; Z88.6 Allergy status to analgesic agent
CPT/HCPCS: 36415; 71045; 74177; 80053; 81001; 82962; 83605; 83690; 84484; 85025; 93005; 96361; 96365; 96367; 96375; 96376; 99285; J0131; J0690; J2405; J3490; J7030; J7050; J7060; Q9967

== ENCOUNTER 2019-03-15 00:11 | Emergency (ER) | payer MEDICARE, OTHER ==
[~2019-03-15] VITALS: Ht 170.2 cm; Wt 77.3 kg
[~2019-03-15 00:11] MED LIST changes: -CLOP75 PO; +CLOP75TA3 PO; -LEVO500T89 PO; +METF-445 PO; -METF850T2 PO
[2019-03-15] MEDS ORDERED: LISI-661 PO (00:21)
[2019-03-15 00:25] LABS: GLUCOSE,POINT OF CARE 188 MG/DL (70-110)
[2019-03-15] MEDS ORDERED: KETOROLAC TROMETHAMINE 60 MG/2 ML VIAL IM ONE (01:15)
[2019-03-15] MEDS ORDERED: DiphenhydrAMINE HCL 25 MG CAPSULE PO ONE (01:15)
[2019-03-15 02:20] VITALS: BP 128/80
== END 2019-03-15 02:45 | disposition home or self-care (01) ==
LOC: EMS 00:13
DX: S60.011A Contusion of right thumb without damage to nail, initial encounter (principal); M79.644 Pain in right finger(s); I10 Essential (primary) hypertension; E11.40 Type 2 diabetes mellitus with diabetic neuropathy, unspecified; E78.00 Pure hypercholesterolemia, unspecified; K21.9 Gastro-esophageal reflux disease without esophagitis; I25.10 Atherosclerotic heart disease of native coronary artery without angina pectoris; Z79.4 Long term (current) use of insulin; Z79.899 Other long term (current) drug therapy; W23.0XXA Caught, crushed, jammed, or pinched between moving objects, initial encounter; Y93.89 Activity, other specified; Y92.89 Other specified places as the place of occurrence of the external cause; Y99.8 Other external cause status
CPT/HCPCS: 73140; 82962; 96372; 99283; J1885

== ENCOUNTER 2020-01-06 17:30 | Emergency (ER) | payer MEDICARE ==
[~2020-01-06] VITALS: Ht 170.2 cm; Wt 77.3 kg
[~2020-01-06 17:30] MED LIST changes: -LISI-660 PO; +LISI-661 PO
[2020-01-06 17:54] LABS: GLUCOSE,POINT OF CARE 157 MG/DL (70-110)
[2020-01-06 18:40] LABS: BASOPHILS % (AUTO) 0.5 % (0.0-2.0); EOSINOPHILS % (AUTO) 1.5 % (1.0-6.0); HEMATOCRIT 41.1 % (41-53); HEMOGLOBIN 14.1 g/dL (13.5-17.5); LYMPHOCYTES # (AUTO) 1.2 K/uL (1.0-4.8); LYMPHOCYTES % (AUTO) 10.1 % (22.0-44.0); MEAN CORPUSCULAR HGB CONC 34.3 G/dL (31.0-37.0); MEAN CORPUSCULAR VOLUME 90 fL (80-100); MONOCYTES # (AUTO) 1.2 K/uL (0.1-1.0); MONOCYTES % (AUTO) 10.3 % (2.0-9.0); NEUTROPHILS # (AUTO) 8.9 K/uL (1.8-7.7); NEUTROPHILS % (AUTO) 77.6 % (40.0-70.0); PLATELET COUNT (AUTO) 230 K/uL (150-450); RED BLOOD CELL COUNT(AUTO) 4.55 MIL/uL (4.50-5.90); RED CELL DISTRIBUTION WIDTH 13.9 % (11.5-14.5)
[2020-01-06 18:49] LABS: CREATININE 5.4 mg/dL (0.60-1.30); POTASSIUM 4.8 mmol/L (3.5-5.1)
[2020-01-06 18:55] LABS: ALBUMIN 3.6 g/dL (3.4-5.0); BILIRUBIN,TOTAL 2.3 mg/dL (0.1-1.0); TOTAL PROTEIN, SERUM 7.8 g/dL (6.4-8.2)
[2020-01-06] MEDS ORDERED: SODIUM CHLORIDE 0.9% 2,300 ML IV ONE (19:12)
[2020-01-06 20:19] LABS: INR 1.2 (0.9-1.1); PROTHROMBIN TIME 11.8 SEC (9.4-11.6)
[2020-01-06 20:35] LABS: B-TYPE NATRIURETIC PEPTIDE 103 pg/mL (0-100)
[2020-01-06 20:56] LABS: LACTIC ACID 3.5 mmol/L (0.4-2.0)
[2020-01-06] MEDS ORDERED: CefTRIAXone SODIUM 2 GM in DEXTROSE 5%-WATER 50 ML IV ONE (21:15)
[2020-01-06 21:47] LABS: INFLUENZA TYPE A NEGATIVE FOR TYPE A (NEGATIVE); INFLUENZA TYPE B NEGATIVE FOR TYPE B (NEGATIVE)
[2020-01-06 21:59] LABS: APPEARANCE,URINE CLEAR (CLEAR); BILIRUBIN,URINE NEGATIVE (NEGATIVE); GLUCOSE, URINE (UA) 100 mg/dL (NEGATIVE); KETONES,URINE NEGATIVE (NEGATIVE); LEUKOCYTE ESTERASE ,URINE NEGATIVE (NEGATIVE); NITRATE,URINE NEGATIVE (NEGATIVE); OCCULT BLOOD,URINE TRACE (NEGATIVE); PH,URINE 5.5 (5.0-8.0); PROTEIN,URINE TRACE (NEGATIVE); UROBILINOGEN,URINE 0.2 mg/dL (<=1.0)
[2020-01-06 22:02] LABS: BACTERIA,URINE Rare /HPF (None Seen); SQUAMOUS EPITHELIAL CELL,UR Few /LPF (None Seen); WBC,URINE 0-2 /HPF (0-5)
[2020-01-06 22:37] VITALS: BP 176/74
== END 2020-01-06 23:27 | disposition short-term general hospital (02) ==
LOC: EMS 17:40
DX: N17.9 Acute kidney failure, unspecified (principal); E87.1 Hypo-osmolality and hyponatremia; R42 Dizziness and giddiness; E11.9 Type 2 diabetes mellitus without complications; I10 Essential (primary) hypertension; E78.00 Pure hypercholesterolemia, unspecified; I25.10 Atherosclerotic heart disease of native coronary artery without angina pectoris; Z79.4 Long term (current) use of insulin; Z79.899 Other long term (current) drug therapy; Z88.6 Allergy status to analgesic agent
CPT/HCPCS: 36415; 71045; 76700; 80053; 81001; 82962; 83605; 83880; 84145; 84484; 85025; 85610; 87040; 87804; 93005; 96361; 96365; 96366; 99285; J0696; J7030; J7060; 82948

== ENCOUNTER 2024-09-30 13:17 | Emergency (ER) | payer MEDICARE, OTHER ==
[~2024-09-30] VITALS: Ht 170.2 cm; Wt 77.3 kg
[~2024-09-30 13:17] MED LIST changes: -CLOP75TA3 PO; +CLOP75TA60 PO; +GABA-1181 PO; -GABA-531 PO; -LISI-661 PO; +LISI-893 PO; +PANT-31 PO; -PANT40TA25 PO
[2024-09-30 13:25] VITALS: TEMP 98.5
[2024-09-30] MEDS ORDERED: LOSA-381 PO (13:33)
[2024-09-30] MEDS ORDERED: INSU3INS3 SQ (13:33)
[2024-09-30] MEDS ORDERED: CLOP75TA32 PO (13:33)
[2024-09-30] MEDS ORDERED: LOSA1TAB37 PO (13:33)
[2024-09-30] MEDS ORDERED: METF-446 PO (13:33)
[2024-09-30] MEDS ORDERED: FLUO-341 PO (13:33)
[2024-09-30 13:50] LABS: GLUCOMETER DEV NAME(LOC) ER.7; GLUCOSE,POINT OF CARE 288 MG/DL (70-110)
[2024-09-30] MEDS: ACETAMINOPHEN 325 MG TABLET PO ONE (15:32)
[2024-09-30 16:43] LABS: BASOPHILS % (AUTO) 0.8 % (0.0-2.0); HEMATOCRIT 45.5 % (41-53); HEMOGLOBIN 15.4 g/dL (13.5-17.5); LYMPHOCYTES # (AUTO) 2.1 K/uL (1.0-4.8); LYMPHOCYTES % (AUTO) 19.9 % (22.0-44.0); MEAN CORPUSCULAR HEMOGLOBIN 30.3 pg (26.0-34.0); MEAN CORPUSCULAR HGB CONC 33.7 G/dL (31.0-37.0); MEAN CORPUSCULAR VOLUME 90 fL (80-100); MONOCYTES # (AUTO) 0.8 K/uL (0.1-1.0); MONOCYTES % (AUTO) 7.3 % (2.0-9.0); NEUTROPHILS # (AUTO) 7.4 K/uL (1.8-7.7); PLATELET COUNT (AUTO) 233 K/uL (150-450); RED BLOOD CELL COUNT(AUTO) 5.07 MIL/uL (4.50-5.90); RED CELL DISTRIBUTION WIDTH 14.9 % (11.5-14.5); WHITE BLOOD COUNT (AUTO) 10.7 K/uL (4.5-11.0)
[2024-09-30 16:52] LABS: CREATININE 1.62 mg/dL (0.60-1.30); POTASSIUM 4.2 mmol/L (3.5-5.1)
[2024-09-30] MEDS ORDERED: ACET-66 PO (17:01)
[2024-09-30 17:09] VITALS: BP 149/70; PULSE 64; RESP 18; O2SAT 97
== END 2024-09-30 17:11 | disposition home or self-care (01) ==
LOC: EMS 13:17
DX: S93.402A Sprain of unspecified ligament of left ankle, initial encounter (principal); S60.222A Contusion of left hand, initial encounter; S00.81XA Abrasion of other part of head, initial encounter; R51.9 Headache, unspecified; I10 Essential (primary) hypertension; K21.9 Gastro-esophageal reflux disease without esophagitis; E78.00 Pure hypercholesterolemia, unspecified; Z88.6 Allergy status to analgesic agent; Z79.02 Long term (current) use of antithrombotics/antiplatelets; Z79.4 Long term (current) use of insulin; Z79.84 Long term (current) use of oral hypoglycemic drugs; Z90.49 Acquired absence of other specified parts of digestive tract; Z79.899 Other long term (current) drug therapy; W01.0XXA Fall on same level from slipping, tripping and stumbling without subsequent striking against object, initial encounter; Y93.89 Activity, other specified; Y92.89 Other specified places as the place of occurrence of the external cause; Y99.8 Other external cause status
CPT/HCPCS: 70450; 80048; 82962; 85025; 99284

== ENCOUNTER 2024-12-20 08:08 | Emergency (ER) | payer MEDICARE ==
[~2024-12-20] VITALS: Ht 162.6 cm; Wt 68.2 kg
[~2024-12-20 08:08] MED LIST changes: +ACET-66 PO; +CLOP75TA32 PO; -CLOP75TA60 PO; +FLUO-341 PO; -INSLAN SQ; +INSU3INS3 SQ; +LOSA1TAB37 PO; -METF-445 PO; +METF-446 PO
[2024-12-20 08:20] VITALS: TEMP 98.3
[2024-12-20 09:28] LABS: TROPONIN I-HIGH SENSITIVITY 11 ng/L (<76)
[2024-12-20] MEDS: SODIUM CHLORIDE 0.9% 1,000 ML IV ONE (09:36)
[2024-12-20] MEDS: ACETAMINOPHEN 500 MG TABLET PO ONE (09:36)
[2024-12-20 09:42] LABS: B-TYPE NATRIURETIC PEPTIDE 17 pg/mL (0-100)
[2024-12-20 09:43] LABS: ALANINE AMINOTRANSFERASE 41 U/L (12-78); ALBUMIN 3.7 g/dL (3.4-5.0); ALKALINE PHOSPHATASE 104 U/L (46-116); ANION GAP 6 mmol/L (8-16); ASPARTATE AMINOTRANSFERASE 24 U/L (15-37); BILIRUBIN,TOTAL 4.4 mg/dL (0.1-1.0); CALCIUM, TOTAL 9.4 mg/dL (8.8-10.5); CARBON DIOXIDE 29 mmol/L (22-29); CHLORIDE 94 mmol/L (98-107); CREATINE KINASE, TOTAL ONLY 89 U/L (39-308); CREATININE 1.55 mg/dL (0.60-1.30); GLOMERULAR FILTR. RATE CALC 44 mL/min (>60); POTASSIUM 3.6 mmol/L (3.5-5.1); SODIUM SERUM 129 mmol/L (136-145); TOTAL PROTEIN, SERUM 7.6 g/dL (6.4-8.2); UREA NITROGEN, BLOOD 17 mg/dL (7-18)
[2024-12-20 09:44] LABS: GLUCOSE,RANDOM 535 mg/dL (70-110)
[2024-12-20 09:48] LABS: BASOPHILS % (AUTO) 0.8 % (0.0-2.0); EOSINOPHILS % (AUTO) 2.7 % (1.0-6.0); HEMATOCRIT 47.4 % (41-53); HEMOGLOBIN 16.2 g/dL (13.5-17.5); LYMPHOCYTES # (AUTO) 2.1 K/uL (1.0-4.8); LYMPHOCYTES % (AUTO) 22.6 % (22.0-44.0); MEAN CORPUSCULAR HEMOGLOBIN 30.8 pg (26.0-34.0); MEAN CORPUSCULAR HGB CONC 34.2 G/dL (31.0-37.0); MEAN CORPUSCULAR VOLUME 90 fL (80-100); MONOCYTES # (AUTO) 1.1 K/uL (0.1-1.0); MONOCYTES % (AUTO) 11.2 % (2.0-9.0); NEUTROPHILS # (AUTO) 5.9 K/uL (1.8-7.7); NEUTROPHILS % (AUTO) 62.7 % (40.0-70.0); PLATELET COUNT (AUTO) 272 K/uL (150-450); RED BLOOD CELL COUNT(AUTO) 5.26 MIL/uL (4.50-5.90); RED CELL DISTRIBUTION WIDTH 13.9 % (11.5-14.5); WHITE BLOOD COUNT (AUTO) 9.4 K/uL (4.5-11.0)
[2024-12-20 09:50] LABS: ACETONE,BLOOD NEGATIVE (NEGATIVE)
[2024-12-20] MEDS: INSULIN REGULAR, HUMAN 100 UNITS/ML IVP ONE ×2 (09:56→11:55)
[2024-12-20] MEDS: POTASSIUM CHLORIDE 20 MEQ ER TABLET PO ONE (11:06)
[2024-12-20 13:30] VITALS: BP 118/69; PULSE 72; RESP 16; O2SAT 100
== END 2024-12-20 13:53 | disposition home or self-care (01) ==
LOC: EMS 08:09
DX: E11.65 Type 2 diabetes mellitus with hyperglycemia (principal); R20.2 Paresthesia of skin; I10 Essential (primary) hypertension; K21.9 Gastro-esophageal reflux disease without esophagitis; E78.00 Pure hypercholesterolemia, unspecified; Z79.02 Long term (current) use of antithrombotics/antiplatelets; Z79.4 Long term (current) use of insulin; Z90.49 Acquired absence of other specified parts of digestive tract; Z88.6 Allergy status to analgesic agent; Z79.84 Long term (current) use of oral hypoglycemic drugs; Z79.899 Other long term (current) drug therapy
CPT/HCPCS: 99285; 96374; 71045; 96361; 80048; 80076; 82009; 82550; 83880; 84484; 85025; 36415; 82962; 93005; 96376; J1815; J7030